=== PATIENT | male | born 1990 | race American Indian/Alaskan Native ===

== ENCOUNTER 2018-01-03 12:35 | Emergency (ER) | payer OTHER ==
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
[2018-01-03 13:58] LABS: EOS # 0.1 (0.0-0.7); EOS % 4.4 % (1.5-5.0); GRAN # 1.29 (1.4-6.5); GRAN % 40.7 % (50.0-68.0); HEMOGLOBIN 15.7 g/dL (14.0-18.0); LYMPH # 1.5 (1.2-3.4); LYMPH % 46.7 % (22.0-35.0); MEAN CELL VOLUME 86.9 fl (80.0-105.0); MEAN CORPUSCULAR HEMOGLOBIN 29.9 pg (25.0-35.0); MEAN CORPUSCULAR HGB CONC 34.4 g/dl (31.0-37.0); MEAN PLATELET VOLUME 10.3 fl (7.0-11.0); MONO # 0.3 (0.1-0.6); MONO % 8.2 % (1.0-6.0); RBC 5.25 10^6/uL (3.5-6.1); RED CELL DISTRIBUTION WIDTH 12.6 % (11.5-14.5); WHITE BLOOD COUNT 3.2 10^3/ul (4.5-11.0)
[2018-01-03 14:07] LABS: ALB/GLOB RATIO 1.1 (1.1-1.8); ALT/SGPT 24 U/L (7-56); AST/SGOT 26 U/L (17-59); BLOOD UREA NITROGEN 16 mg/dL (7-21); CALCIUM 9.1 mg/dL (8.4-10.5); GFR NON-AFRICAN AMERICAN > 60
--- NOTE | 2018-01-03 14:21 | CT ---
Date of service: 01/03/2018 PROCEDURE: CT Cervical Spine without contrast HISTORY: midline neck pain COMPARISON: None available. TECHNIQUE: Axial computed tomography images were obtained of the cervical spine without the use of intravenous contrast. Coronal and sagittal reformatted images were created and reviewed. Radiation dose: Total exam DLP = 446 mGy-cm. This CT exam was performed using one or more of the following dose reduction techniques: Automated exposure control, adjustment of the mA and/or kV according to patient size, and/or use of iterative reconstruction technique. FINDINGS: VERTEBRAE: No fracture. Normal alignment. No destructive bony lesion. DISCS/SPINAL CANAL/NEURAL FORAMINA: No significant central canal or neural foraminal stenosis. There is a left-sided disc herniation extruded superiorly at C6-7. There is a bilobed disc bulge at C7-T1 with foraminal stenosis PARASPINAL SOFT TISSUES: Unremarkable. OTHER FINDINGS: None. IMPRESSION: There is a left-sided disc herniation extruded superiorly at C6-7. There is a bilobed disc bulge at C7-T1 with foraminal stenosis
[2018-01-03 15:09] VITALS: BP 124/79; PULSE 77; RESP 18; TEMP 98; O2SAT 98
== END 2018-01-03 15:09 | disposition home or self-care (01) ==
LOC: ED 12:35
DX: M48.02 Spinal stenosis, cervical region (principal); M50.223 Other cervical disc displacement at C6-C7 level
CPT/HCPCS: 72125; 80053; 85025; 96374; 99283; J1885